=== PATIENT | male | born 1965 | race Two or more races ===

== ENCOUNTER 2020-10-03 19:38 | Inpatient (IN) | payer OTHER, MEDICAID ==
[~2020-10-03] VITALS: Ht 172.7 cm; Wt 82.6 kg
[2020-10-03] MEDS ORDERED: LAMO100 PO (20:03)
[2020-10-03] MEDS ORDERED: AMLO-258 PO (20:03)
[2020-10-03] MEDS ORDERED: ATOR10TA84 PO (20:03)
[2020-10-03] MEDS ORDERED: HALOPERIDOL 5 MG TABLET PO PRN (21:30)
[2020-10-03] MEDS ORDERED: ZOLPIDEM TARTRATE 10 MG TABLET PO PRN (21:30)
[2020-10-03] MEDS ORDERED: PNEUMOCOCCAL VACCINE POLYVALENT 0.5 ML VIAL [PPSV23] IM ONE (22:30)
[2020-10-03] MEDS ORDERED: INFLUENZA VIRUS VACCINE QVS 2020-21 (6MO+)/PF 60 MCG/0.5 ML SYRINGE IM ONE (22:30)
[2020-10-03 22:31] VITALS: BP 168/97
[2020-10-04 04:46] VITALS: BP 132/82
[2020-10-04 08:19] LABS: BASOPHILS % (AUTO) 0.8 % (0.0-2.0); EOSINOPHILS % (AUTO) 2.6 % (1.0-6.0); HEMATOCRIT 45.6 % (41-53); HEMOGLOBIN 15.6 g/dL (13.5-17.5); LYMPHOCYTES # (AUTO) 2.3 K/uL (1.0-4.8); LYMPHOCYTES % (AUTO) 37.1 % (22.0-44.0); MEAN CORPUSCULAR HEMOGLOBIN 30.6 pg (26.0-34.0); MEAN CORPUSCULAR HGB CONC 34.2 G/dL (31.0-37.0); MEAN CORPUSCULAR VOLUME 89 fL (80-100); MONOCYTES # (AUTO) 0.8 K/uL (0.1-1.0); MONOCYTES % (AUTO) 13.4 % (2.0-9.0); NEUTROPHILS # (AUTO) 2.9 K/uL (1.8-7.7); NEUTROPHILS % (AUTO) 46.1 % (40.0-70.0); PLATELET COUNT (AUTO) 275 K/uL (150-450); RED BLOOD CELL COUNT(AUTO) 5.09 MIL/uL (4.50-5.90); RED CELL DISTRIBUTION WIDTH 14.3 % (11.5-14.5)
[2020-10-04 08:41] LABS: HEMOGLOBIN A1C 5.5 % (3.8-5.6)
[2020-10-04 08:55] LABS: ALANINE AMINOTRANSFERASE 45 U/L (12-78); ALBUMIN 3.9 g/dL (3.4-5.0); ALKALINE PHOSPHATASE 74 U/L (46-116); ANION GAP 10 mmol/L (8-16); ASPARTATE AMINOTRANSFERASE 31 U/L (15-37); BILIRUBIN,TOTAL 1.1 mg/dL (0.1-1.0); CALCIUM, TOTAL 9.2 mg/dL (8.8-10.5); CARBON DIOXIDE 27 mmol/L (22-29); CHLORIDE 107 mmol/L (98-107); CHOL/HDL RATIO 2.8 (4.2-7.3); CHOLESTEROL 176 mg/dL (131-200); FREE T4 (FREE THYROXINE) 0.98 ng/dL (0.76-1.46); GLOMERULAR FILTR. RATE CALC > 60 mL/min (>60); GLUCOSE,RANDOM 119 mg/dL (70-110); HDL CHOLESTEROL 64 mg/dL (40-60); LDL CHOL (CALC.) 95 mg/dL (0-130); SODIUM SERUM 144 mmol/L (136-145); THYROID STIMULATING HORMONE 2.07 uIU/mL (0.36-3.74); TOTAL PROTEIN, SERUM 7.8 g/dL (6.4-8.2); TRIGLYCERIDES 86 mg/dL (15-150); UREA NITROGEN, BLOOD 12 mg/dL (7-18)
[2020-10-04] MEDS ORDERED: AmLODIPine BESYLATE 5 MG TABLET PO SCH (09:00)
[2020-10-04] MEDS: AmLODIPine BESYLATE 5 MG TABLET PO SCH ×2 (09:00→09:23)
[2020-10-04 09:07] VITALS: BP 127/73
[2020-10-04] MEDS ORDERED: *PATIENT'S OWN MED [ENTER DRUG, DOSE, FREQUENCY IN COMMENTS] CLINICAL ONE (11:00)
[2020-10-04] MEDS: LamoTRIgine 100 MG TABLET PO SCH (12:49)
[2020-10-04] MEDS: BuPROPion HCL 150 MG SR TABLET PO SCH (12:49)
[2020-10-04] MEDS: LORazepam 2 MG TABLET PO PRN ×2 (12:50→20:03)
[2020-10-04] MEDS ORDERED: CloNIDine HCL 0.1 MG TABLET PO PRN (15:45)
[2020-10-04] MEDS ORDERED: PETROLATUM,WHITE 28 GM JELLY TP PRN (15:45)
[2020-10-04] MEDS ORDERED: ACETAMINOPHEN 325 MG TABLET PO PRN (15:45)
[2020-10-04] MEDS ORDERED: MAG HYDROX/AL HYDROX/SIMETH ES 30 ML SUSPENSION UDCUP PO PRN (15:45)
[2020-10-04] MEDS ORDERED: IBUPROFEN 400 MG TABLET PO PRN (15:45)
[2020-10-04] MEDS ORDERED: NICOTINE 14 MG/24 HOUR PATCH TD PRN (15:45)
[2020-10-04] MEDS ORDERED: ONDANSETRON HCL 4 MG TABLET PO PRN (15:45)
[2020-10-04] MEDS ORDERED: ALBUTEROL SULFATE HFA 90 MCG/PUFF 8 GM INHALER IH PRN (15:45)
[2020-10-04] MEDS ORDERED: DOCUSATE SODIUM 100 MG CAPSULE PO PRN (15:45)
[2020-10-04] MEDS ORDERED: MAGNESIUM HYDROXIDE SUSPENSION 30 ML UDCUP PO PRN (15:45)
[2020-10-04] MEDS ORDERED: LOPERAMIDE HCL 2 MG CAPSULE PO PRN (15:45)
[2020-10-04] MEDS ORDERED: GuaiFENesin/D-METHORPHAN [SUGAR-FREE] 200-20MG/10 ML SYRUP UDCUP PO PRN (15:45)
[2020-10-04 16:19] VITALS: BP 139/80
[2020-10-04] MEDS ORDERED: TRINTELLIX 5 MG PO SCH (16:21)
[2020-10-05 03:07] VITALS: BP 122/76
[2020-10-05] MEDS ORDERED: LamoTRIgine 100 MG TABLET PO SCH (09:00)
[2020-10-05 09:24] VITALS: BP 153/86
[2020-10-05] MEDS: ATORVASTATIN CALCIUM 10 MG TABLET PO SCH (09:42)
[2020-10-05] MEDS: BuPROPion HCL 150 MG SR TABLET PO SCH (09:43)
[2020-10-05] MEDS: AmLODIPine BESYLATE 10 MG TABLET PO SCH (09:43)
[2020-10-05] MEDS: LamoTRIgine 100 MG TABLET PO SCH (09:43)
[2020-10-05] MEDS: TRINTELLIX 5 MG PO SCH (09:44)
[2020-10-05] MEDS: LORazepam 2 MG TABLET PO PRN ×3 (09:44→18:03)
[2020-10-05 16:30] VITALS: BP 117/70
[2020-10-06 04:41] VITALS: BP 135/82
[2020-10-06] MEDS: BuPROPion HCL 150 MG SR TABLET PO SCH (08:58)
[2020-10-06] MEDS: AmLODIPine BESYLATE 10 MG TABLET PO SCH (08:58)
[2020-10-06] MEDS: LamoTRIgine 100 MG TABLET PO SCH (08:58)
[2020-10-06] MEDS: ATORVASTATIN CALCIUM 10 MG TABLET PO SCH (08:58)
[2020-10-06] MEDS: TRINTELLIX 5 MG PO SCH (08:59)
[2020-10-06 09:10] VITALS: BP 119/66
[2020-10-06] MEDS ORDERED: LAMO100 PO (10:12)
[2020-10-06] MEDS ORDERED: BUPR150SR PO (10:12)
== END 2020-10-06 12:37 | disposition home or self-care (01) | DRG 885 ==
LOC: B3A 21:20
PROVIDERS: ADMIT Psychiatry & Neurology Child & Adolescent Psychiatry; ATTEND Psychiatry & Neurology Child & Adolescent Psychiatry
DX: F31.4 Bipolar disorder, current episode depressed, severe, without psychotic features (principal); R45.851 Suicidal ideations; Z88.8 Allergy status to other drugs, medicaments and biological substances; F41.9 Anxiety disorder, unspecified; Z91.5 Personal history of self-harm; J45.909 Unspecified asthma, uncomplicated; E78.5 Hyperlipidemia, unspecified; I10 Essential (primary) hypertension; R73.9 Hyperglycemia, unspecified; F10.20 Alcohol dependence, uncomplicated; Y90.9 Presence of alcohol in blood, level not specified; E78.00 Pure hypercholesterolemia, unspecified; Z79.899 Other long term (current) drug therapy; R56.9 Unspecified convulsions
CPT/HCPCS: 83036; 84439; 84443; 87081; 90686; A9575

== ENCOUNTER 2020-10-08 23:06 | Inpatient (IN) | payer OTHER, MEDICAID ==
[~2020-10-08] VITALS: Ht 167.6 cm; Wt 82.2 kg
[~2020-10-08 23:06] MED LIST: AMLO-258 PO; ATOR10TA84 PO; BUPR150SR PO; LAMO100 PO
[2020-10-09] MEDS ORDERED: LORazepam 2 MG TABLET PO PRN (09:00)
[2020-10-09] MEDS ORDERED: HALOPERIDOL 5 MG TABLET PO PRN ×2 (09:00→09:30)
[2020-10-09] MEDS ORDERED: ZOLPIDEM TARTRATE 10 MG TABLET PO PRN (09:00)
[2020-10-09 16:08] VITALS: BP 146/87
[2020-10-09] MEDS ORDERED: ACETAMINOPHEN 325 MG TABLET PO PRN (20:00)
[2020-10-09] MEDS ORDERED: DOCUSATE SODIUM 100 MG CAPSULE PO PRN (20:00)
[2020-10-09] MEDS ORDERED: MAGNESIUM HYDROXIDE SUSPENSION 30 ML UDCUP PO PRN (20:00)
[2020-10-09] MEDS ORDERED: ONDANSETRON HCL 4 MG TABLET PO PRN (20:00)
[2020-10-09] MEDS ORDERED: MAG HYDROX/AL HYDROX/SIMETH ES 30 ML SUSPENSION UDCUP PO PRN (20:00)
[2020-10-09] MEDS ORDERED: NICOTINE 14 MG/24 HOUR PATCH TD PRN (20:00)
[2020-10-09] MEDS ORDERED: ALBUTEROL SULFATE HFA 90 MCG/PUFF 8 GM INHALER IH PRN (20:00)
[2020-10-09] MEDS ORDERED: GuaiFENesin/D-METHORPHAN [SUGAR-FREE] 200-20MG/10 ML SYRUP UDCUP PO PRN (20:00)
[2020-10-09] MEDS ORDERED: LOPERAMIDE HCL 2 MG CAPSULE PO PRN (20:00)
[2020-10-09] MEDS ORDERED: CloNIDine HCL 0.1 MG TABLET PO PRN (20:00)
[2020-10-09] MEDS ORDERED: PETROLATUM,WHITE 28 GM JELLY TP PRN (20:00)
[2020-10-09 20:26] VITALS: BP 141/84
[2020-10-09] MEDS: IBUPROFEN 400 MG TABLET PO PRN (20:28)
[2020-10-10 00:49] VITALS: BP 123/73
[2020-10-10 07:44] LABS: BASOPHILS % (AUTO) 0.7 % (0.0-2.0); EOSINOPHILS % (AUTO) 3.1 % (1.0-6.0); HEMATOCRIT 45.3 % (41-53); HEMOGLOBIN 15.6 g/dL (13.5-17.5); LYMPHOCYTES # (AUTO) 2.3 K/uL (1.0-4.8); MEAN CORPUSCULAR HEMOGLOBIN 30.8 pg (26.0-34.0); MEAN CORPUSCULAR HGB CONC 34.5 G/dL (31.0-37.0); MEAN CORPUSCULAR VOLUME 89 fL (80-100); MONOCYTES % (AUTO) 12.7 % (2.0-9.0); NEUTROPHILS # (AUTO) 4.3 K/uL (1.8-7.7); NEUTROPHILS % (AUTO) 54.5 % (40.0-70.0); PLATELET COUNT (AUTO) 253 K/uL (150-450); RED BLOOD CELL COUNT(AUTO) 5.08 MIL/uL (4.50-5.90); RED CELL DISTRIBUTION WIDTH 13.9 % (11.5-14.5)
[2020-10-10 08:09] VITALS: BP 147/83
[2020-10-10 08:15] LABS: ALANINE AMINOTRANSFERASE 56 U/L (12-78); ALBUMIN 3.6 g/dL (3.4-5.0); ALKALINE PHOSPHATASE 74 U/L (46-116); ANION GAP 7 mmol/L (8-16); ASPARTATE AMINOTRANSFERASE 24 U/L (15-37); BILIRUBIN,TOTAL 0.8 mg/dL (0.1-1.0); CALCIUM, TOTAL 9.2 mg/dL (8.8-10.5); CARBON DIOXIDE 29 mmol/L (22-29); CHLORIDE 106 mmol/L (98-107); CHOL/HDL RATIO 3.5 (4.2-7.3); CHOLESTEROL 166 mg/dL (131-200); CREATININE 0.87 mg/dL (0.60-1.30); FREE T4 (FREE THYROXINE) 0.95 ng/dL (0.76-1.46); GLOMERULAR FILTR. RATE CALC > 60 mL/min (>60); GLUCOSE,RANDOM 102 mg/dL (70-110); HDL CHOLESTEROL 48 mg/dL (40-60); LDL CHOL (CALC.) 93 mg/dL (0-130); POTASSIUM 4.7 mmol/L (3.5-5.1); SODIUM SERUM 142 mmol/L (136-145); TOTAL PROTEIN, SERUM 7.2 g/dL (6.4-8.2); TRIGLYCERIDES 124 mg/dL (15-150); UREA NITROGEN, BLOOD 14 mg/dL (7-18)
[2020-10-10 08:31] LABS: HEMOGLOBIN A1C 5.5 % (3.8-5.6)
[2020-10-10] MEDS: ATORVASTATIN CALCIUM 10 MG TABLET PO SCH (09:15)
[2020-10-10] MEDS: AmLODIPine BESYLATE 10 MG TABLET PO SCH (09:15)
[2020-10-10] MEDS: LamoTRIgine 100 MG TABLET PO SCH (12:42)
[2020-10-10] MEDS: BuPROPion HCL 150 MG SR TABLET PO SCH (12:42)
[2020-10-10] MEDS ORDERED: *PATIENT'S OWN MED [ENTER DRUG, DOSE, FREQUENCY IN COMMENTS] CLINICAL ONE (16:15)
[2020-10-10 16:20] VITALS: BP 139/83
[2020-10-10] MEDS: ZOLPIDEM TARTRATE 10 MG TABLET PO PRN (20:28)
[2020-10-11 06:18] VITALS: BP 129/71
[2020-10-11 08:22] VITALS: BP 124/74
[2020-10-11] MEDS: AmLODIPine BESYLATE 10 MG TABLET PO SCH (09:28)
[2020-10-11] MEDS: LamoTRIgine 100 MG TABLET PO SCH (09:28)
[2020-10-11] MEDS: BuPROPion HCL 150 MG SR TABLET PO SCH (09:28)
[2020-10-11] MEDS: TRINTELLIX 5 MG PO SCH (09:30)
[2020-10-11] MEDS: ATORVASTATIN CALCIUM 10 MG TABLET PO SCH (09:36)
[2020-10-11] MEDS: LORazepam 2 MG TABLET PO PRN ×2 (13:31→21:56)
[2020-10-11 16:18] VITALS: BP 129/69
[2020-10-12 06:20] VITALS: BP 126/76
[2020-10-12 08:12] VITALS: BP 146/90
[2020-10-12] MEDS: LamoTRIgine 100 MG TABLET PO SCH (08:25)
[2020-10-12] MEDS: ATORVASTATIN CALCIUM 10 MG TABLET PO SCH (08:25)
[2020-10-12] MEDS: AmLODIPine BESYLATE 10 MG TABLET PO SCH (08:25)
[2020-10-12] MEDS: TRINTELLIX 5 MG PO SCH (08:26)
[2020-10-12] MEDS: BuPROPion HCL 150 MG SR TABLET PO SCH (08:32)
[2020-10-12] MEDS ORDERED: VORT5TAB PO (11:51)
[2020-10-12 14:17] VITALS: BP 138/78
[2020-10-12] MEDS: IBUPROFEN 400 MG TABLET PO PRN (14:17)
[2020-10-12 16:13] VITALS: BP 140/86
[2020-10-12] MEDS: LORazepam 2 MG TABLET PO PRN (17:19)
[2020-10-12] MEDS: ZOLPIDEM TARTRATE 10 MG TABLET PO PRN (20:51)
[2020-10-13 08:23] VITALS: BP 140/87
[2020-10-13] MEDS: ATORVASTATIN CALCIUM 10 MG TABLET PO SCH (08:32)
[2020-10-13] MEDS: AmLODIPine BESYLATE 10 MG TABLET PO SCH (08:32)
[2020-10-13] MEDS: LamoTRIgine 100 MG TABLET PO SCH (08:33)
[2020-10-13] MEDS: TRINTELLIX 5 MG PO SCH (08:34)
[2020-10-13] MEDS: BuPROPion HCL 150 MG SR TABLET PO SCH (09:41)
== END 2020-10-13 13:40 | disposition home or self-care (01) | DRG 885 ==
LOC: UNDOADMIN 10-09 09:32 → B2X 10-09 09:32
PROVIDERS: ADMIT Psychiatry & Neurology Child & Adolescent Psychiatry; ATTEND Psychiatry & Neurology Child & Adolescent Psychiatry
DX: F31.9 Bipolar disorder, unspecified (principal); R45.851 Suicidal ideations; E78.5 Hyperlipidemia, unspecified; F10.10 Alcohol abuse, uncomplicated; F41.0 Panic disorder [episodic paroxysmal anxiety]; I10 Essential (primary) hypertension; J45.909 Unspecified asthma, uncomplicated; Z76.5 Malingerer [conscious simulation]
CPT/HCPCS: 83036; 84436; 84439; 84443; 87081